=== PATIENT | female | born 1985 | race Caucasian/White ===

== ENCOUNTER 2016-09-03 09:21 | Inpatient (IN) | END 2016-09-06 15:10 | disposition home or self-care (01) | DRG 766 | DX: O34.211 Maternal care for low transverse scar from previous cesarean delivery (principal); Z37.0 Single live birth; Z3A.39 39 weeks gestation of pregnancy ==

== ENCOUNTER 2016-09-30 16:33 | Emergency (ER) | payer OTHER ==
[~2016-09-30] VITALS: Ht 162.6 cm; Wt 76.5 kg
[2016-09-30 16:35] VITALS: Ht 162.6 cm; Wt 76.5 kg
[2016-09-30] MEDS ORDERED: CEPH-443 PO (17:24)
--- NOTE | 2016-09-30 17:32 | ERD ---
ER Documentation Chief Complaint Date/Time DATE: 09/30/16 TIME: 17:24 Chief Complaint PATIENT HAD A C SECTION ON SEPTEMBER 03, HERE TO REMOVE FIDE HPI Patient is a 31-year-old female, , who presents emergency department for staple removal. Patient had a on September 03, 2016 and since that time has not had her fide removed. Patient states has been to her MANAGER CARE MANAGEMENT's office twice now for staple removal however she has been unable to be seen due to an unknown reason.. Patient denies any fevers, chills, nausea, vomiting, abdominal pain, vaginal bleeding or excessive discharge. Patient currently is breast-feeding. ROS All systems reviewed and are negative except as per history of present illness. Medications Home Meds Active Scripts Cephalexin* (Keflex*) 500 Mg Capsule, 500 MG PO QID for 7 Days, CAP Prov:RANI ROSA PA-C 09/30/16 Allergies Allergies: Coded Allergies: No Known Allergy (Unverified , 09/03/16) Physical Exam Vitals Vital Signs Date Time Temp Pulse Resp B/P Pulse Ox O2 Delivery O2 Flow Rate FiO2 09/30/16 16:35 98.1 31 18 105/59 100 Physical Exam GENERAL: Well-developed, well-nourished female. Appears in no acute distress. HEAD: Normocephalic, atraumatic. EYES: Pupils are equally reactive bilaterally. EOMs grossly intact. No conjunctival erythema. ENT: Moist mucous membranes. No uvula deviation. No kissing tonsils. Clear rhinorrhea NECK: Supple. No meningismus. Normal range of motion of the neck. LUNG: Clear to auscultation bilaterally. No rhonchi, wheezing, rales or coarse breath sounds. HEART: Regular rate and rhythm. No murmurs, rubs or gallops. ABDOMEN: 12 cm linear surgical incision above the pubic symphysis. Fide in place. No active bleeding or discharge. Slight erythema noted on the right aspect of the incision. No wound dehiscence. Abdomen is soft, nontender, and nondistended. Positive bowel sounds in all four quadrants. No rebound tenderness , no guarding. (-) McBurney's point tenderness. No CVA tenderness. BACK: No midline tenderness. EXTREMITIES: Equal pulses bilaterally. No peripheral clubbing, cyanosis or edema. No unilateral leg swelling. NEUROLOGIC: Alert and oriented. Moving all four extremities without any difficulty. Normal speech. Steady gait. SKIN: Normal color. Warm and dry. No rashes or lesions. Procedures/MDM PROCEDURES: Fide removal by me: Fide removed with tweezers and scissors without incident. Wound shows no evidence of foreign body, neurologic injury, vascular injury, open joint or tendon laceration. No signs of wound dehiscence. MEDICAL DECISION MAKING: Patient is a 31-year-old female who presents for staple removal from her C- section incision. Patient had on September 03, 2016. Patient states she has attempted to be seen by her MANAGER CARE MANAGEMENT 2 however she has been unable to be seen. Vital signs were reviewed. Patient is afebrile. Patient was not hypoxic. Patient was hemodynamically stable. Sutures were removed without any difficulty. No wound dehiscence was noted. Slight erythema of the right aspect of the incision was noted. At this time I will empirically treat the patient with course of antibiotics given that she has had fide in for over one month. Low suspicion for abscess formation, cellulitis, wound dehiscence, deep space infection, seroma. PRESCRIPTION: Keflex DISCHARGE: At this time, patient is stable for discharge and outpatient management. Strict return precautions were discussed with patient for signs of infection. Patient advised to return to the ER for any redness, swelling, warmth, fevers or chills. She was advised to follow-up with her primary care physician and/or MANAGER CARE MANAGEMENT in the next 1 to days. I have instructed the patient to promptly return to the ER for any new or worsening symptoms including increased pain, fever, nausea, vomiting, weakness or LOC. The patient and/or family expressed understanding of and agreement with this plan. All questions were answered. Home care instructions were provided. Departure Diagnosis: Primary Impression: Encounter for removal of fide Condition: Stable Patient Instructions: Staple Removal, No Complication Referrals: [facility] YOU HAVE RECEIVED A MEDICAL SCREENING EXAM AND THE RESULTS INDICATE THAT YOU DO NOT HAVE A CONDITION THAT REQUIRES URGENT TREATMENT IN THE EMERGENCY DEPARTMENT. FURTHER EVALUATION AND TREATMENT OF YOUR CONDITION CAN WAIT UNTIL YOU ARE SEEN IN YOUR DOCTORS OFFICE WITHIN THE NEXT 1-2 DAYS. IT IS YOUR RESPONSIBILITY TO MAKE AN APPOINTMENT FOR FOLOW-UP CARE. IF YOU HAVE A PRIMARY DOCTOR --you should call your primary doctor and schedule an appointment IF YOU DO NOT HAVE A PRIMARY DOCTOR YOU CAN CALL OUR PHYSICIAN REFERRAL HOTLINE AT IF YOU CAN NOT AFFORD TO SEE A PHYSICIAN YOU CAN CHOSE FROM THE FOLLOWING [facility] [address] [facility] [address] [facility] [phone] [facility] [address] [facility] [address] [facility] [facility] [address] [facility] [facility] YOU HAVE RECEIVED A MEDICAL SCREENING EXAM AND THE RESULTS INDICATE THAT YOU DO NOT HAVE A CONDITION THAT REQUIRES URGENT TREATMENT IN THE EMERGENCY DEPARTMENT. FURTHER EVALUATION AND TREATMENT OF YOUR CONDITION CAN WAIT UNTIL YOU ARE SEEN IN YOUR DOCTORS OFFICE WITHIN THE NEXT 1-2 DAYS. IT IS YOUR RESPONSIBILITY TO MAKE AN APPOINTMENT FOR FOLOW-UP CARE. IF YOU HAVE A PRIMARY DOCTOR --you should call your primary doctor and schedule and appointment IF YOU DO NOT HAVE A PRIMARY DOCTOR YOU CAN CALL OUR PHYSICIAN REFERRAL HOTLINE AT . IF YOU CAN NOT AFFORD TO SEE A PHYSICIAN YOU CAN CHOSE FROM THE FOLLOWING [facility]: [facility] [address] [place] [address] [facility] [address] [place] [address] [facility] [address] [place] [address] [employer]NAGER CARE [employer] [place] [address] [facility] [address] [place] [address] OFFICE FAX ANDREA ROBERTS [address] [place], [place] [id number] [facility] [address] [place], [place] [id number] [facility] [place] [address] [facility] [address] [address] BERRIOS, [place] [address] [place] [address] [facility] [address] [place] [address] [address] [facility], [facility] [address] - [address] MARINO, FELICITA [address], [facility] [address] [address] SPANN, JARED [address] [facility]. [address], [place] [address] [address] OLSEN, [facility] [address] [place], [place] [phone] Additional Instructions: Call your primary care doctor TOMORROW for an appointment during the next 1-2 days.See the doctor sooner or return here if your condition worsens before your appointment time. Follow up with her MANAGER CARE MANAGEMENT in the next 1-2 days. Return to the ER for any new or worsening symptoms including redness, swelling, discharge, fevers or chills. RANI ROSA PA-C Sep 30, 2016 17:32
== END 2016-09-30 17:27 | disposition home or self-care (01) ==
LOC: E/R 16:33
DX: Z48.02 Encounter for removal of sutures (principal)
CPT/HCPCS: 99283